=== PATIENT | female | born 1995 | race Caucasian/White ===

== ENCOUNTER 2018-05-18 11:37 | Emergency (ER) | payer SELFPAY ==
[~2018-05-18] VITALS: Ht 167.6 cm; Wt 113.6 kg
[~2018-05-18 11:37] MED LIST: BACTRIM DS1 TAB OR; BACTROBAN2 % EX; NAPROSYN500 MG PO; PREVACID30 M3 PO; ZOFRAN ODT4 MG PO
[2018-05-18] MEDS ORDERED: CYCLOBENZAPR5 MG PO (12:53)
[2018-05-18] MEDS ORDERED: PREDNISONE50 MG PO (12:53)
[2018-05-18 12:55] VITALS: BP 136/76
== END 2018-05-18 12:55 | disposition home or self-care (01) | DRG 552 ==
LOC: ED 11:37
DX: M54.42 Lumbago with sciatica, left side (principal)

== ENCOUNTER 2023-05-27 00:20 | Emergency (ER) | payer SELFPAY ==
[~2023-05-27] VITALS: Ht 167.6 cm; Wt 127.0 kg
[~2023-05-27 00:20] MED LIST changes: +CYCLOBENZAPR5 MG PO; +PREDNISONE50 MG PO
[2023-05-27 01:16] LABS: HCG SERUM/URINE (NEG/POS) NEGATIVE (NEGATIVE)
[2023-05-27 01:17] LABS: BASO% 0.7 % (0-3); EOS% 1.2 % (0-8); HEMATOCRIT 39.7 % (37.0-47.0); HEMOGLOBIN 13.3 g/dl (12.0-16.0); IMMATURE GRANULOCYTES 1.3 % (0.0-5.0); LYMPH% 22.9 % (15-41); MEAN CELL VOLUME 91.7 fL CALC (80.0-100.0); MEAN CORPUSCULAR HGB 30.7 pG CALC (26.0-32.0); MEAN CORPUSCULAR HGB CONC 33.5 g/dL CAL (32.0-36.0); MONO% 6.7 % (2-13); NEUT# 8.36 thou/uL (2.00-7.15); NEUT% 67.2 % (42-76); RED BLOOD COUNT 4.33 mill/uL (4.20-5.60); RED CELL DISTRI WIDTH 11.4 % (11.5-15.5)
[2023-05-27] MEDS ORDERED: VIBRAMYCIN100 M2 PO (01:52)
[2023-05-27 02:05] VITALS: BP 141/67
== END 2023-05-27 02:06 | disposition home or self-care (01) | DRG 203 ==
LOC: ED 00:20
PROVIDERS: Family Medicine
DX: J20.9 Acute bronchitis, unspecified (principal); F17.290 Nicotine dependence, other tobacco product, uncomplicated; Z20.822 Contact with and (suspected) exposure to COVID-19

== ENCOUNTER 2024-01-23 07:35 | Observation (INO) | payer OTHER ==
[2024-01-23] VITALS (14 sets, daily range): BP systolic 102–179; BP diastolic 40–116
[~2024-01-23] VITALS: Ht 167.6 cm; Wt 135.2 kg
[~2024-01-23 07:35] MED LIST changes: +VIBRAMYCIN100 M2 PO
[2024-01-23 07:58] LABS: BASO% 0.6 % (0-3); EOS% 0.6 % (0-8); HEMATOCRIT 45.1 % (37.0-47.0); IMMATURE GRANULOCYTES 0.3 % (0.0-5.0); LYMPH% 20.9 % (15-41); MEAN CELL VOLUME 89.5 fL CALC (80.0-100.0); MEAN CORPUSCULAR HGB CONC 34.6 g/dL CAL (32.0-36.0); MONO% 8.8 % (2-13); NEUT# 8.73 thou/uL (2.00-7.15); NEUT% 68.8 % (42-76); RED BLOOD COUNT 5.04 mill/uL (4.20-5.60); RED CELL DISTRI WIDTH 11.4 % (11.5-15.5)
[2024-01-23] MEDS ORDERED: SODIUM CHLORIDE 0.9% 1,000 ML IV ONE (08:05)
[2024-01-23] MEDS ORDERED: ONDANSETRON HCl 4 MG/2 ML SDV IV ONE (08:05)
[2024-01-23 08:08] LABS: HEMOGLOBIN 15.6 g/dl (12.0-16.0)
[2024-01-23 08:12] LABS: URINE BLOOD DIPSTICK Negative (NEGATIVE); URINE GLUCOSE - DIPSTICK Negative (NEGATIVE); URINE KETONE Trace mg/dL (NEGATIVE); URINE LEUK ESTERASE Negative (NEGATIVE); URINE NITRITE - DIPSTICK Negative (Negative); URINE PH 6.5 (4.5-8.0); URINE PROTEIN - DIPSTICK 30 mg/dL (NEG-TRACE); URINE SPECIFIC GRAVITY 1.025; URINE UROBILINOGEN - DIPSTICK 0.2 E.U./dL (0.2)
[2024-01-23 08:13] LABS: URINE COLOR Yellow
[2024-01-23 08:19] LABS: CREATININE 0.9 mg/dL (0.5-1.0); POTASSIUM 4.2 mmol/l (3.5-5.1); TOTAL PROTEIN 8.6 g/dL (6.3-8.2)
[2024-01-23 08:24] LABS: URINE WBC 0-2 WBC/hpf (0-5)
[2024-01-23 08:25] LABS: URINE BACTERIA FEW hpf; URINE CALCIUM OXALATE CRYSTALS FEW lpf; URINE SQUAMOUS EPITHELIAL CELL MODERATE EPI/hpf (0-FEW)
[2024-01-23 08:32] LABS: BILIRUBIN, TOTAL 1.5 mg/dL (0.02-1.3)
[2024-01-23] MEDS ORDERED: KETOROLAC TROMETHAMINE 30 MG/ML SDV IV ONE (09:00)
[2024-01-23] MEDS ORDERED: PROMETHAZINE HCL 25 MG/ML AMP IM ONE (09:05)
[2024-01-23] MEDS ORDERED: PIPERACILLIN Sodium-Tazobactam 3.375 GM in SODIUM CHLORIDE 0.9% 100 ML IV ONE (12:10)
[2024-01-23] MEDS ORDERED: oxyCODONE 5MG/ ACETAMINOPHEN 325MG TAB PO PRN (12:15)
[2024-01-23] MEDS ORDERED: SODIUM CHLORIDE 0.9% 1,000 ML IV PRN (12:15)
[2024-01-23] MEDS ORDERED: HYDROmorphone HCL 2 MG/AMP IV PRN (12:15)
[2024-01-23] MEDS ORDERED: PIPERACILLIN Sodium-Tazobactam 3.375 GM in SODIUM CHLORIDE 0.9% 100 ML IV SCH (18:00)
[2024-01-23] MEDS ORDERED: ONDANSETRON HCl 4 MG/2 ML SDV IV SCH (18:00)
[2024-01-23] MEDS ORDERED: KETOROLAC TROMETHAMINE 15 MG/ML SDV IV SCH (18:00)
[2024-01-24] VITALS (8 sets, daily range): BP systolic 98–141; BP diastolic 51–80
[2024-01-24 06:08] LABS: BILIRUBIN, TOTAL 1.8 mg/dL (0.02-1.3)
[2024-01-24 06:14] LABS: ALBUMIN 3.8 g/dL (3.2-5.0); TOTAL PROTEIN 6.3 g/dL (6.3-8.2)
[2024-01-24] MEDS ORDERED: Iopamidol 300 (Isovue) 61% 100ML SDV IV ONE (08:02)
[2024-01-24] MEDS ORDERED: LACTATED RINGER'S 1,000 ML IV ONE (08:02)
[2024-01-24] MEDS ORDERED: FAMOTIDINE 10MG/ML 2ML SDV IV ONE (08:02)
[2024-01-24] MEDS ORDERED: GLUCAGON HCL (Rdna) 1 MG VIAL ONE (08:02)
[2024-01-24] MEDS ORDERED: LIDOcaine HCl 1% (Local Anesth.) 20 ML VIAL ONE (08:03)
[2024-01-24] MEDS ORDERED: ACETAMINOPHEN 100 ML IV ONE (10:48)
[2024-01-24] MEDS ORDERED: ONDANSETRON HCl 4 MG/2 ML SDV ONE (11:06)
[2024-01-24] MEDS ORDERED: HYDROmorphone HCL 2 MG/AMP ONE (11:40)
[2024-01-24] MEDS ORDERED: SUCCINYLCHOLINE CHLORIDE 20 MG/ML 10ML VIAL IV ONE (13:04)
[2024-01-24] MEDS ORDERED: LIDOCAINE HCL 2% 2ML SDV IV ONE (13:04)
[2024-01-24] MEDS ORDERED: hydrALAZINE HCL 20 MG/ML VIAL(1 ML) IV ONE (13:04)
[2024-01-24] MEDS ORDERED: MIDAZOLAM HCL 2 MG/2 ML VIAL IV ONE (13:04)
[2024-01-24] MEDS ORDERED: KETOROLAC TROMETHAMINE 30 MG/ML SDV IV ONE (13:04)
[2024-01-24] MEDS ORDERED: SUGAMMADEX SODIUM 200 MG/2 ML SDV IV ONE (13:04)
[2024-01-24] MEDS ORDERED: ROCURONIUM BROMIDE 10 MG/ML 5ML VIAL IV ONE (13:04)
[2024-01-24] MEDS ORDERED: ONDANSETRON HCl 4 MG/2 ML SDV IV ONE (13:04)
[2024-01-24] MEDS ORDERED: PROPOFOL 200 MG/20 ML VIAL IV ONE (13:04)
[2024-01-24] MEDS ORDERED: DEXAMETHASONE SODIUM PHOSPHATE PF 10 MG/ML SDV IV ONE (13:04)
== END 2024-01-24 14:13 | disposition short-term general hospital (02) | DRG 419 ==
LOC: ED 07:35 → ED-I 08:10 → ED 12:13 → MS2 12:14
PROVIDERS: Family Medicine; ADMIT Surgery; ATTEND Surgery
PROC: 0FT44ZZ Resection of Gallbladder, Percutaneous Endoscopic Approach (ICD-10-PCS; principal; 2024-01-24)
PROC: BF001ZZ Plain Radiography of Bile Ducts using Low Osmolar Contrast (ICD-10-PCS; 2024-01-24)
DX: K80.64 Calculus of gallbladder and bile duct with chronic cholecystitis without obstruction (principal); E66.01 Morbid (severe) obesity due to excess calories; F17.290 Nicotine dependence, other tobacco product, uncomplicated; Z20.822 Contact with and (suspected) exposure to COVID-19
CPT/HCPCS: G0378; J0131; J1100; J1610; Q9966; Q9967